=== PATIENT | female | born 1935 | race Caucasian/White ===

== ENCOUNTER 2020-09-14 12:37 | Outpatient (CLI) | payer MEDICARE, OTHER | END 2020-09-14 23:59 | disposition home or self-care (01) | LOC: VAS 12:37 | PROVIDERS: ATTEND Family Medicine | DX: M79.89 Other specified soft tissue disorders (principal) | CPT/HCPCS: 93971 ==

== ENCOUNTER 2021-04-06 10:01 | Emergency (ER) | payer MEDICARE, OTHER ==
[~2021-04-06] VITALS: Ht 165.1 cm; Wt 85.8 kg
[2021-04-06] MEDS ORDERED: orphenadrine citrate 60mg/2ml inj. IM ONE (10:35)
[2021-04-06 11:04] LABS: BASOPHILS # (AUTO) 0.1 X10'3 (0-0.2); BASOPHILS % (AUTO) 0.8 % (0-1); EOSINOPHILS # (AUTO) 0.1 X10'3 (0-0.9); EOSINOPHILS % (AUTO) 1.7 % (0-6); HEMATOCRIT 43.3 % (35.0-45.0); HEMOGLOBIN 14.9 g/dl (12.0-16.0); LYMPHOCYTES # (AUTO) 1.1 X10'3 (1.1-4.8); LYMPHOCYTES % (AUTO) 13.4 % (21-51); MEAN CORPUSCULAR HEMOGLOBIN 31.9 PG (27.0-31.0); MEAN CORPUSCULAR HGB CONC 34.5 g/dL (33.0-36.5); MEAN CORPUSCULAR VOLUME 92.4 FL (78-98); MEAN PLATELET VOLUME 8.1 FL (7.4-10.4); MONOCYTES # (AUTO) 0.7 X10'3 (0-0.9); NEUTROPHILS # (AUTO) 6.3 X10'3 (1.8-7.7); NEUTROPHILS % (AUTO) 76.1 % (42-75); PLATELET COUNT 194 X10'3 (140-440); RED BLOOD COUNT 4.68 X10'6 (4.20-5.60); RED CELL DISTRIBUTION WIDTH 14.6 % (11.5-14.5); WHITE BLOOD COUNT 8.3 X10'3 (4.5-11.0)
[2021-04-06 11:18] LABS: ALANINE AMINOTRANSFERASE 30 U/L (12-78); ALBUMIN 3.6 G/DL (3.4-5.0); ALBUMIN/GLOBULIN RATIO 0.8 (1.1-1.5); ALKALINE PHOSPHATASE 68 IU/L (46-116); ANION GAP 9 (8-16); ASPARTATE AMINO TRANSFERASE 21 U/L (10-37); BILIRUBIN,TOTAL 0.7 MG/DL (0.1-1.0); BLOOD UREA NITROGEN 16 MG/DL (7-18); BUN/CREATININE RATIO 18.6 (6.6-38.0); CALCIUM 9.1 MG/DL (8.5-10.1); CHLORIDE 103 MMOL/L (99-107); CREATININE 0.86 MG/DL (0.40-0.90); GLUCOSE 130 MG/DL (70-104); LIPASE < 50 U/L (73-393); POTASSIUM 3.4 MMOL/L (3.5-5.1); SODIUM 142 MMOL/L (135-145); TOTAL CARBON DIOXIDE 30.1 MMOL/L (24-32); TOTAL PROTEIN 8.1 G/DL (6.4-8.2); eGFR 63 ML/MIN
[2021-04-06] MEDS ORDERED: morphine 2 MG/ML inj. syringe IV ONE (11:35)
[2021-04-06] MEDS ORDERED: ondansetron 4mg rapidly disintigrating tab PO ONE (11:35)
[2021-04-06] MEDS ORDERED: morphine 2 MG/ML inj. syringe IM ONE (11:55)
--- NOTE | 2021-04-06 12:03 | NUR ---
SON: FRANCOIS KATHLEEN CALLED AND LEFT NUMBER [phone]
[2021-04-06] MEDS ORDERED: CYCL-1 PO (12:25)
[2021-04-06 12:42] LABS: CLARITY,URINE SLIGHTLY CLOUDY (Clear); COLOR,URINE YELLOW (Yellow); UA COLLECTION TYPE CLN CATCH MIDSTREAM
[2021-04-06 12:43] LABS: GLUCOSE, URINE NEGATIVE (Neg); KETONES,URINE NEGATIVE (Neg); LEUKOCYTE ESTERASE ,URINE TRACE (Neg); NITRITES, URINE NEGATIVE (Neg); OCCULT BLOOD,URINE TRACE-LYSED (Neg); PROTEIN,URINE 30 mg/dl (Neg); UROBILINOGEN,URINE 0.2 E.U/dL (0.2-1.0)
[2021-04-06 13:10] LABS: RBC,URINE 0-2 /HPF (0-2)
[2021-04-06 13:11] LABS: BACTERIA,URINE 4+ /HPF (Neg); MUCUS STRANDS NONE SEEN /LPF (Neg); SQUAMOUS EPITHELIAL CELL,UR MODERATE /LPF (FEW)
[2021-04-06] MEDS ORDERED: CEPH250T PO (13:43)
[2021-04-06 13:47] VITALS: BP 167/79
== END 2021-04-06 13:52 | disposition home or self-care (01) ==
LOC: ER 10:01
DX: M54.6 Pain in thoracic spine (principal); N39.0 Urinary tract infection, site not specified
CPT/HCPCS: 36415; 80053; 81001; 83690; 85025; 87077; 87088; 87186; 96372; 99284; J2270; J2360